=== PATIENT | male | born 1955 ===

== ENCOUNTER → 2018-08-12 | Outpatient (CLI) | payer OTHER ==
[~2018-08-12] MED LIST: CLON0.1T PO; POLY2500 PO; TRAM50TA PO
--- NOTE | 2018-08-12 20:13 | PAIN ---
DATE OF SERVICE: 08/12/2018 INITIAL CONSULTATION FOR PAIN CLINIC CHIEF COMPLAINT: Low back and bilateral lower extremity pain. HISTORY OF PRESENT ILLNESS: This is a 62-year-old male who presents with history of pain for about 3 months increasing pain. He has had pain for many years, about 25 years ago, but he has had increased pain over the past 3 months with significant gait disturbance where he is walking very awkwardly, also had losing feeling and sensation in both of his forearms and hands over the past 3 months as well. The patient has [facility], has a Neurology appointment scheduled in about 2 weeks and also has had an MRI scan of the lumbar spine showing significant spinal stenosis, severe in degree at L3-L4, L4-L5 and L5-S1 due to disk bulges and epidural lipomatosis with redundancy of the nerve roots of the cauda equina proximal to the stenosis, progressed since exam of 11/17/2011. The patient reports significant pain down the bilateral lower extremities, mostly in the anterior lateral aspect of the thighs, medial lower legs and feet, worse on the left than the right, worse with walking, standing, weightbearing, and changing positions, also present with sitting for prolonged periods. Again, the patient has had difficulty with feeling in his hands for about 3 months as well. The patient reports the pain is waking up from sleep at night about 5 times every night, does not affect his bowel or bladder control currently, but does affect her ability to walk significantly. He has a cane or walker he uses at times, but does not have it with him today. The patient's gait disturbance is significant over the past 3 months and progressing significantly. The patient has had previous epidural injections in the past about 25 years ago after injury and also some trigger point injections, which were not significantly improving the pain. The patient did try tramadol, which did not decrease the pain as well prescribed by his primary physician. The patient describes his disability rating from 0 to 10, 10 being the worst, as a 10 in all categories except for life support activities, which is a 5; 10 in self-care, sexual behavior, occupation, social activity, family and home responsibilities and recreation activities. PAST MEDICAL HISTORY: Significant for hypertension, cigarette smoking. Continues to smoke for the past 45 years. PREVIOUS SURGERY: Includes prostate biopsy, umbilical hernia repair and undescended right testicle. CURRENT MEDICATIONS: Include tramadol, clonidine, and polyethylene glycol for constipation. ALLERGIES: The patient has no known drug allergies. FAMILY HISTORY: Significant for lupus. SOCIAL HISTORY: The patient drinks about one glass of alcohol every other day, smokes less than a pack a day and has for 45 years. He is , has no children, living at home, lives locally in [place], [place]. Reports he is currently retired. REVIEW OF SYSTEMS: The patient's review of systems is positive for those items mentioned in history of present illness. All systems reviewed and otherwise negative. It is complete, full and well documented on the patient's chart. PHYSICAL EXAMINATION: VITAL SIGNS: The patient's blood pressure is 197/116, pulse is 78, respirations 18, temperature 98.0 degrees Fahrenheit, height is 5 feet 6 inches, weight is 200 pounds. GENERAL: The patient is awake, alert, oriented, appropriate, very pleasant demeanor. The patient is accompanied by his spouse. HEENT: Shows normocephalic, atraumatic. Extraocular movements intact and symmetrical. Oral cavity: Mucous membranes moist and pink. Dentition is intact. NECK: Shows anterior throat supple without palpable lymphadenopathy noted. Swallow reflex is symmetrical. CHEST: Shows normal on inspection. Breath sounds are clear to auscultation bilaterally. HEART: Shows S1 and S2 clear. Approximately grade 2/5 systolic murmur is auscultated. Breath sounds are clear to auscultation bilaterally. ABDOMEN: Obese, soft, nontender, nondistended. No palpable organomegaly is noted. No rebound or guarding demonstrated. BACK: Shows spine grossly in the midline, normal-appearing cervical lordotic curvature, thoracic kyphotic curvature and lumbar lordotic curvature. The patient shows full rotational motion of the cervical spine without significant difficulty or pain reported including extension and flexion. Paraspinous musculature is mildly tender in the inferior aspect of the cervical paraspinous muscles, but only diffusely without radiation. Lower back shows lumbar paraspinous musculature symmetrical on inspection. With palpation shows some moderate tenderness throughout the upper, middle, and lower distribution of paraspinous muscles, mostly in the lower distribution without trigger points, without radiation. No tenderness over the spinous processes, sacrum or sacroiliac regions. EXTREMITIES: The patient's lower extremities show deep tendon reflexes at 1+ in the patellar and tendo calcaneus. Upper extremities show 2+ biceps and triceps tendons. Motor exam of the lower extremities shows 3-4 on a scale of 5 with bilateral ankles and 4/5 with quadriceps and hamstring flexion are symmetrical. Upper extremities show 4/5 buyer renter strength bilaterally. Bicep and tricep flexion again 4/5, but symmetrical as well. Peripheral pulses are 1+ posterior tibia, 2+ in the radial distribution. No peripheral edema is noted in any of the extremities. The patient's skin shows warm and dry, good turgor. No edema. No sores, rashes or bruising. The patient has difficulty getting up from a seated position, uses his arms to push himself up of the arms of the chair. With walking, the patient's gait is significantly disturbed with almost heel-to-toe type pattern walking where he is crossing his legs over the other foot as though he were on a tightrope when ambulating and very unstable. The patient is holding onto his , also holding on to the wall, again has no assistive devices with him today. IMPRESSION: 1. This is a 62-year-old male with about 3-month history of increasing gait disturbance, pain in the bilateral lower extremities and low back as well as losing of sensation in the bilateral hands and arms. 2. MRI scan of lumbar spine as noted with severe spinal stenosis. 3. No images of the cervical spine available at time of this dictation. 4. Arthritis. 5. Hypertension. PLAN: Options were discussed with the patient and the patient's spouse including conservative medical management, physical therapy, interventional techniques and I strongly suggest that he keep his appointment with a neurologist and suggested possible search for demyelinating processes with the patient's current symptoms and gait disturbance. The patient will follow up after Neurology appointment if necessary. We discussed potential interventional techniques for the low back and radicular pain if the Neurology evaluation is without significant new findings. The patient will try Medrol Dosepak in the meantime as he has not tried any steroid tapers and this may help all of the symptoms hopefully. The patient was given instruction as well as side effects to be aware of with the medication and will follow up after Neurology evaluation. MICHOACANO STOUT MD DR: MALA/sara JOB#: [id number] / [id number]
== END | disposition home or self-care (01) ==
LOC: PNCL 10:13
PROVIDERS: ATTEND Anesthesiology
DX: M48.061 Spinal stenosis, lumbar region without neurogenic claudication (principal); I10 Essential (primary) hypertension; M19.90 Unspecified osteoarthritis, unspecified site; R20.0 Anesthesia of skin; Z87.891 Personal history of nicotine dependence
CPT/HCPCS: 99214